=== PATIENT | female | born 1990 | race Caucasian/White ===

== ENCOUNTER 2019-05-10 03:33 | Inpatient (IN) | payer BC ==
[2019-05-10] MEDS ORDERED: Tranexamic Acid 1,000 MG in Sodium Chloride 0.9% 100 ML IV PRN (16:57)
[2019-05-10] MEDS ORDERED: Methylergonovine 0.2 MG/1 ML Amp IM PRN (16:57)
[2019-05-10] MEDS ORDERED: Sodium Chloride 0.9% 10 ML SDV IV PRN (16:57)
[2019-05-10] MEDS ORDERED: Misoprostol 200 MCG Tab PO PRN (16:57)
[2019-05-10] MEDS ORDERED: Sodium Chloride 0.9% 2.5 ML Syringe FLUSH PRN (16:57)
[2019-05-10] MEDS ORDERED: Carboprost Tromethamine 250 MCG/1 ML Amp IM PRN (16:57)
[2019-05-10] MEDS ORDERED: Sodium Chloride 0.9% 10 ML Syringe FLUSH PRN (16:57)
[2019-05-10] MEDS ORDERED: Butorphanol 1 MG/ML SDV IVPUSH PRN (16:57)
[2019-05-10] MEDS ORDERED: Nalbuphine 10 MG/1 ML Vial IVPUSH PRN (16:57)
[2019-05-10] MEDS ORDERED: Terbutaline 1 MG/ML SDV SUBCUT PRN (16:57)
[2019-05-10] MEDS ORDERED: Misoprostol 25 MCG (1/4 of 100 MCG) Tab VAG PRN ×2 (16:57)
[2019-05-10] MEDS ORDERED: Lidocaine 1% 50 ML MDV INJECT PRN (16:57)
[2019-05-10] MEDS ORDERED: Water For Irrigation,Sterile 1,000 ML Container IRR PRN (16:57)
[2019-05-10] MEDS ORDERED: Oxytocin/0.9 % Sodium Chloride 30 UNIT/500 ML BAG IV SCH ×2 (17:00)
[2019-05-10] MEDS: Lactated Ringers 1,000 ML IV SCH (17:27)
[2019-05-11] MEDS ORDERED: Bupivicaine/fentaNYL/NS 250 ML ONE (00:42)
[2019-05-11] MEDS: Lactated Ringers 1,000 ML IV SCH (01:15)
--- NOTE | 2019-05-11 01:27 | PCM.PREANE ---
Preanesthetic Assessment - Anesthesia/Transfusion/Family Hx Anesthesia History: Prior Anesthesia Without Reaction Family History of Anesthesia Reaction: No Transfusion History: No Prior Transfusion(s) - Review of Systems General: No Symptoms Pulmonary: No Symptoms Cardiovascular: No Symptoms Gastrointestinal: No Symptoms Neurological: No Symptoms Other: Reports: None - Physical Assessment NPO Status Date: 05/11/19 NPO Status Time: 19:00 Vital Signs: 148/68 82 18 98% Height: 5 ft 6 in Weight: 81.647 kg ASA Class: 2 Mental Status: Alert & Oriented x3 Dentition: Reports: Normal Dentition Thyro-Mental Finger Breadths: 3 Mouth Opening Finger Breadths: 3 ROM/Head Extension: Full Lungs: Clear to Auscultation, Normal Respiratory Effort Cardiovascular: Regular Rate, Regular Rhythm - Lab Values: Laboratory Last Values WBC 15.51 K/uL (4.0-11.0) H 05/10/19 16:10 RBC 4.30 M/uL (4.30-5.90) 05/10/19 16:10 Hgb 14.1 g/dL (12.0-16.0) 05/10/19 16:10 Hct 40.3 % (36.0-46.0) 05/10/19 16:10 MCV 93.7 fL (80.0-98.0) 05/10/19 16:10 MCH 32.8 pg (27.0-32.0) H 05/10/19 16:10 MCHC 35.0 g/dL (31.0-37.0) 05/10/19 16:10 RDW Std Deviation 45.6 fl (28.0-62.0) 05/10/19 16:10 RDW Coeff of Mari 13 % (11.0-15.0) 05/10/19 16:10 Plt Count 303 K/uL (150-400) 05/10/19 16:10 MPV 9.10 fL (7.40-12.00) 05/10/19 16:10 Nucleated RBC % 0.0 /100WBC 05/10/19 16:10 Nucleated RBCs # 0 K/uL 05/10/19 16:10 Blood Type A POSITIVE 05/10/19 16:10 Antibody Screen NEGATIVE 05/10/19 16:10 - Allergies Allergies/Adverse Reactions: Allergies Allergy/AdvReac Type Severity Reaction Status Date / Time No Known Allergies Allergy Verified 05/10/19 16:56 - Blood Blood Available: No - Anesthesia Plan Pre-Op Medication Ordered: None - Acknowledgements Anesthesia Type Planned: Epidural Pt an Appropriate Candidate for the Planned Anesthesia: Yes Alternatives and Risks of Anesthesia Discussed w Pt/Guardian: Yes Pt/Guardian Understands and Agrees with Anesthesia Plan: Yes Additional Comments: Pt verbalized understanding and wants to proceed. PreAnesthesia Questionnaire Cardiovascular History: Reports: None Respiratory History: Reports: None Gastrointestinal History: Reports: None Genitourinary History: Reports: None AUDIOPROSTHOLOGIST History: Reports: None Musculoskeletal History: Reports: Back Pain, Chronic Neurological History: Reports: Migraines, Other (See Below) Other Neuro History: vestibular migrains Psychiatric History: Reports: None Endocrine/Metabolic History: Reports: None Hematologic History: Reports: None Immunologic History: Reports: None Oncologic (Cancer) History: Reports: None Dermatologic History: Reports: None - Infectious Disease History Infectious Disease History: Reports: None - Past Surgical History Head Surgeries/Procedures: Reports: None HEENT Surgical History: Reports: LASIK, Naso-Sinus Surgery GI Surgical History: Reports: None Female Surgical History: Reports: None Endocrine Surgical History: Reports: None Neurological Surgical History: Reports: Spinal Fusion Musculoskeletal Surgical History: Reports: Other (See Below) Other Musculoskeletal Surgeries/Procedures:: back surgery L5-S1 fusion Oncologic Surgical History: Reports: None Dermatological Surgical History: Reports: None - SUBSTANCE USE Smoking Status *Q: Never Smoker Tobacco Use Within Last Twelve Months: No Second Hand Smoke Exposure: No Recreational Drug Use History: No - HOME MEDS Home Medications: Home Meds Pnv No.95/Ferrous Fum/Folic AC [ Tablet] 1 tab PO DAILY 12/18/17 [ History] - CURRENT (IN HOUSE) MEDS Current Meds: Current Medications Butorphanol Tartrate (Stadol) 1 mg IVPUSH Q1H PRN PRN Reason: Pain Carboprost Tromethamine (Hemabate Ds) 250 mcg IM ASDIRECTED PRN PRN Reason: Post Hemorrhage Lactated Ringer's (Ringers, Lactated) 1,000 mls @ 150 mls/hr IV ASDIRECTED CHRIS Last Admin: 05/11/19 01:15 Dose: 150 mls/hr Oxytocin/Sodium Chloride (Oxytocin 30 Unit/500 Ml-Ns) 30 unit in 500 mls @ 500 mls/hr IV TITRATE CHRIS Oxytocin/Sodium Chloride (Oxytocin 30 Unit/500 Ml-Ns) 30 unit in 500 mls @ 2 mls/hr IV TITRATE CHRIS; Protocol Last Admin: 05/11/19 01:16 Dose: 2 munits/min, 2 mls/hr Tranexamic Acid 1,000 mg/ (Sodium Chloride) 110 mls @ 660 mls/hr IV ONETIME PRN PRN Reason: Bleeding Lidocaine HCl (Xylocaine 1%) 50 ml INJECT ONETIME PRN PRN Reason: Laceration repair Methylergonovine Maleate (Methergine) 0.2 mg IM ASDIRECTED PRN PRN Reason: Post Hemorrhage Misoprostol (Cytotec) 200 mcg PO ONETIME PRN PRN Reason: Post Hemorrhage Misoprostol (Cytotec) 25 mcg VAG ONETIME PRN PRN Reason: Cervical Ripening Last Admin: 05/10/19 17:45 Dose: 25 mcg Misoprostol (Cytotec) 25 mcg VAG Q4H PRN PRN Reason: Cervical Ripening Nalbuphine HCl (Nubain) 10 mg IVPUSH Q1H PRN PRN Reason: Pain (severe 7-10) Sodium Chloride (Saline Flush) 10 ml FLUSH ASDIRECTED PRN PRN Reason: Keep Vein Open Sodium Chloride (Saline Flush) 2.5 ml FLUSH ASDIRECTED PRN PRN Reason: Keep Vein Open Sodium Chloride (Normal Saline) 10 ml IV ASDIRECTED PRN PRN Reason: IV Use Sterile Water (Sterile Water For Irrigation) 1,000 ml IRR ASDIRECTED PRN PRN Reason: delivery Terbutaline Sulfate (Brethine) 0.25 mg SUBCUT ASDIRECTED PRN PRN Reason: Tacysystole Discontinued Medications Fentanyl/Bupivacaine HCl (Fentanyl/Bupivacaine/Ns 2 Mcg-0.125% 250 Ml) Confirm Administered Dose 250 mls @ as directed .ROUTE .[facility] ONE Stop: 05/11/19 00:43
--- NOTE | 2019-05-11 04:01 | PCM.DEL ---
L & D Note - General Info Date of Service: 05/11/19 Mother's Due Date: 05/14/19 - Delivery Note Labor: Induced by ARM, Induced by Oxytocin Cervical Ripening Method: Misoprostil Delivery Outcome: Livebirth Delivery Method: Spontaneous Vaginal Delivery-Single Presentation: Right Occiput Anterior (FREDERICK) Nuchal Cord: None Prep: Other Anesthesia Type: Epidural Anesthetic: Lidocaine (Xylocaine) 1% Plain Local Anesthetic Volume: 5cc Amniotic Fluid Description: Clear Episiotomy Type: Left Mediolateral Laceration: None Suture type: Vicryl Suture size: 3-0 Placenta: Intact, Spontaneous Cord: 3 Vessels Estimated Blood Loss: 200 Resuscitation Needed: No [place]: Suctioned Score 1 min: 8 Score 5 min: 9 Delivery Comments (Free Text/Narrative):: Liveborn female - General Info Date of Service: 05/11/19 - Patient Data Weight - Most Recent: 81.647 kg Lab Results Last 24 Hours: Laboratory Results - last 24 hr 05/10/19 05/10/19 Range/Units 16:10 16:10 WBC 15.51 H (4.0-11.0) K/uL RBC 4.30 (4.30-5.90) M/uL Hgb 14.1 (12.0-16.0) g/dL Hct 40.3 (36.0-46.0) % MCV 93.7 (80.0-98.0) fL MCH 32.8 H (27.0-32.0) pg MCHC 35.0 (31.0-37.0) g/dL RDW Std Deviation 45.6 (28.0-62.0) fl RDW Coeff of Mari 13 (11.0-15.0) % Plt Count 303 (150-400) K/uL MPV 9.10 (7.40-12.00) fL Nucleated RBC % 0.0 /100WBC Nucleated RBCs # 0 K/uL Blood Type A POSITIVE Antibody Screen NEGATIVE Med Orders - Current: Current Medications Butorphanol Tartrate (Stadol) 1 mg IVPUSH Q1H PRN PRN Reason: Pain Carboprost Tromethamine (Hemabate Ds) 250 mcg IM ASDIRECTED PRN PRN Reason: Post Hemorrhage Lactated Ringer's (Ringers, Lactated) 1,000 mls @ 150 mls/hr IV ASDIRECTED CHRIS Last Admin: 05/11/19 01:15 Dose: 150 mls/hr Oxytocin/Sodium Chloride (Oxytocin 30 Unit/500 Ml-Ns) 30 unit in 500 mls @ 500 mls/hr IV TITRATE CHRIS Oxytocin/Sodium Chloride (Oxytocin 30 Unit/500 Ml-Ns) 30 unit in 500 mls @ 2 mls/hr IV TITRATE CHRIS; Protocol Last Titration: 05/11/19 03:33 Dose: 500 munits/min, 500 mls/hr Tranexamic Acid 1,000 mg/ (Sodium Chloride) 110 mls @ 660 mls/hr IV ONETIME PRN PRN Reason: Bleeding Lidocaine HCl (Xylocaine 1%) 50 ml INJECT ONETIME PRN PRN Reason: Laceration repair Last Admin: 05/11/19 03:48 Dose: 50 ml Methylergonovine Maleate (Methergine) 0.2 mg IM ASDIRECTED PRN PRN Reason: Post Hemorrhage Misoprostol (Cytotec) 200 mcg PO ONETIME PRN PRN Reason: Post Hemorrhage Misoprostol (Cytotec) 25 mcg VAG ONETIME PRN PRN Reason: Cervical Ripening Last Admin: 05/10/19 17:45 Dose: 25 mcg Misoprostol (Cytotec) 25 mcg VAG Q4H PRN PRN Reason: Cervical Ripening Nalbuphine HCl (Nubain) 10 mg IVPUSH Q1H PRN PRN Reason: Pain (severe 7-10) Sodium Chloride (Saline Flush) 10 ml FLUSH ASDIRECTED PRN PRN Reason: Keep Vein Open Sodium Chloride (Saline Flush) 2.5 ml FLUSH ASDIRECTED PRN PRN Reason: Keep Vein Open Sodium Chloride (Normal Saline) 10 ml IV ASDIRECTED PRN PRN Reason: IV Use Sterile Water (Sterile Water For Irrigation) 1,000 ml IRR ASDIRECTED PRN PRN Reason: delivery Last Admin: 05/11/19 03:48 Dose: 1,000 ml Terbutaline Sulfate (Brethine) 0.25 mg SUBCUT ASDIRECTED PRN PRN Reason: Tacysystole Discontinued Medications Fentanyl/Bupivacaine HCl (Fentanyl/Bupivacaine/Ns 2 Mcg-0.125% 250 Ml) Confirm Administered Dose 250 mls @ as directed .ROUTE .[facility] Stop: 05/11/19 00:43 - Problem List & Annotations (1) Vaginal delivery SNOMED Code(s): 979907084 Code(s): O80 - ENCOUNTER FOR FULL-TERM UNCOMPLICATED DELIVERY Status: Acute Current Visit: Yes - Problem List Review Problem List Initiated/Reviewed/Updated: Yes - My Orders Last 24 Hours: My Active Orders 05/10/19 15:30 Patient Status [ADT] Routine 05/10/19 16:10 RPR (SYPHILIS SERO) W/ RFLX [REF] Routine 05/10/19 16:57 Bedrest Bathroom Privileges [RC] ASDIRECTED Communication Order [RC] ASDIRECTED Communication Order [RC] ASDIRECTED Communication Order [RC] ASDIRECTED Heart Tones [RC] CONTINUOUS Non Stress Test [RC] PER UNIT ROUTINE May Shower [RC] ASDIRECTED Notify Provider [RC] PRN Notify Provider [RC] PRN Notify Provider [RC] PRN Notify Provider [RC] STAT Oxygen Therapy [RC] ASDIRECTED Up ad Kandi [RC] ASDIRECTED Vaginal Exam [RC] PRN Vaginal Exam [RC] PRN Vital Signs [RC] PER UNIT ROUTINE Vital Signs [RC] PER UNIT ROUTINE Butorphanol [Stadol] 1 mg IVPUSH Q1H PRN Carboprost Tromethamine [Hemabate DS] 250 mcg IM ASDIRECTED PRN Lidocaine 1% [Xylocaine 1%] 50 ml INJECT ONETIME PRN Methylergonovine [Methergine] 0.2 mg IM ASDIRECTED PRN Nalbuphine [Nubain] 10 mg IVPUSH Q1H PRN Sodium Chloride 0.9% [Normal Saline] 10 ml IV ASDIRECTED PRN Sodium Chloride 0.9% [Saline Flush] 10 ml FLUSH ASDIRECTED PRN Sodium Chloride 0.9% [Saline Flush] 2.5 ml FLUSH ASDIRECTED PRN Terbutaline [Brethine] 0.25 mg SUBCUT ASDIRECTED PRN Tranexamic Acid [Cyklokapron] 1,000 mg Sodium Chloride 0.9% [Normal Saline] 100 ml IV ONETIME Water For Irrigation,Sterile [Sterile Water for Irrigation] 1,000 ml IRR ASDIRECTED PRN miSOPROStoL [Cytotec] 200 mcg PO ONETIME PRN miSOPROStoL [Cytotec] 25 mcg VAG ONETIME PRN miSOPROStoL [Cytotec] 25 mcg VAG Q4H PRN Scalp Electrode [WOMSER] Per Unit Routine Peripheral IV Insertion Adult [OM.PC] Routine Resuscitation Status Routine 05/10/19 17:00 Lactated Ringers [Ringers, Lactated] 1,000 ml IV ASDIRECTED Oxytocin/0.9 % Sodium Chloride [Oxytocin 30 Unit/500 ML-NS] 30 unit in 500 ml IV TITRATE Oxytocin/0.9 % Sodium Chloride [Oxytocin 30 Unit/500 ML-NS] 30 unit in 500 ml IV TITRATE Medication Administration Instruction [OM.PC] Q3H 05/11/19 Dinner Clear Liquid Diet [DIET]
[2019-05-11] MEDS ORDERED: Bisacodyl 10 MG Supp RECTAL PRN (04:03)
[2019-05-11] MEDS ORDERED: Ibuprofen 400 MG Tab PO PRN (04:03)
[2019-05-11] MEDS ORDERED: Tranexamic Acid 1,000 MG in Sodium Chloride 0.9% 100 ML IV PRN (04:03)
[2019-05-11] MEDS ORDERED: Acetaminophen 500 MG Tab PO PRN (04:03)
[2019-05-11] MEDS ORDERED: Witch Hazel Medicated Pads 40/Jar TOP PRN (04:03)
[2019-05-11] MEDS ORDERED: Lanolin 100% Cream 7 GM Tube TOP PRN (04:03)
[2019-05-11] MEDS ORDERED: Benzocaine/Menthol 20%-0.5% Spray 78 GM Cannister TOP PRN (04:03)
--- NOTE | 2019-05-11 04:48 | OR ---
SURGEON: Lacey Forbes M.D. DATE OF PROCEDURE: 05/11/2019 PREOPERATIVE DIAGNOSES: 1. A 39 and 4/7 weeks' intrauterine . 2. Mild chronic hypertension. POSTOPERATIVE DIAGNOSES: 1. A 39 and 4/7 weeks' intrauterine . 2. Mild chronic hypertension. PROCEDURE: Cytotec and Pitocin induction of labor, artificial rupture of membranes, term spontaneous vaginal delivery, left mediolateral episiotomy with repair. COMPLICATIONS: None known. DISPOSITION: Mother and baby in LDR in good condition. COMPLICATIONS: None known. BRIEF HISTORY: This is a 28-year-old female, G1, P0. She presents at 39-3/7 weeks' gestation for induction of labor. Her baseline blood pressures in the 1st trimester were in the 80s and now again in the 3rd trimester in the 80s. No evidence of preeclampsia. However, she is greater than 39 weeks and I did offer induction of labor with Cytotec understanding that it is off-label use, and she did agree. She was admitted to Labor and Delivery. She received a single dose of Cytotec. Following this, she was 2 cm, 80%. Artificial rupture of membranes was performed. Clear fluid noted. She was started on Pitocin. She received an epidural for pain control. She had normal heart tones throughout labor. Blood pressures were high normal in the 120s to 150s over 70s to 80s, and she progressed to complete. DESCRIPTION OF PROCEDURE: With the patient in dorsal lithotomy position, the patient pushed over 1-hour time period. I felt that the perineum would tear badly as it was not stretching and after discussion with the patient, I did offer mediolateral episiotomy and she did request to proceed with it. I placed an additional 10 mL of 1% lidocaine at the 5 o'clock position on the perineum and a small incision was made with scissors. Three additional pushes were required after the episiotomy with delivery of the 's head. The was bulb suctioned on the perineum with subsequent delivery of the 's shoulders and body without any difficulty. The was further bulb suctioned by nose and mouth and the was handed to the mother in the presence of the nurse attending delivery. The was a liveborn female, score of 8 and 9. Weight is pending at the time of dictation. After the cord had ceased to pulsate, it was doubly clamped and cut. Cord blood was collected for cord ABGs as well as routine cord blood sampling. Pitocin had been initiated after delivery of the infant to assist with delivery of the placenta which was delivered spontaneously. Schultze intact with 3 vessels. Upon inspection of the pelvis and perineum, there were no periurethral, vaginal sidewall, cervical, rectal, or perineal lacerations. There was a small mediolateral laceration on the left. She had a small tag that had been removed at the time of incision. The vaginal mucosa was closed with a running locked suture of 3-0 Vicryl. The deep perineal tissue was reapproximated with a running suture of the 3-0 Vicryl and a subcuticular suture of the same for the skin. Final sponge, needle, and instrument counts were correct. There were no known complications. Mother and baby remained in LDR in good condition. ANETA / RADHA /[id number]
[2019-05-11] MEDS: Ibuprofen 800 MG Tab PO PRN ×2 (07:14→18:45)
[2019-05-11] MEDS ORDERED: Prenatal Multivitamin and Multimineral with Iron Tab PO SCH (09:00)
[2019-05-11] MEDS: Acetaminophen 500 MG Tab PO PRN ×2 (12:26→22:39)
[2019-05-11] MEDS: Docusate Sodium 100 MG Cap PO PRN (22:38)
[2019-05-12 07:53] VITALS: BP 134/86; PULSE 89
[2019-05-12] MEDS: Ibuprofen 800 MG Tab PO PRN (07:58)
--- NOTE | 2019-05-12 08:29 | PCM.PNPP ---
- General Info Date of Service: 05/12/19 Functional Status: Reports: Pain Controlled, Tolerating Diet, Ambulating, Urinating, Other (breast feeding is going well. ) - Review of Systems General: Reports: No Symptoms HEENT: Reports: No Symptoms Pulmonary: Reports: No Symptoms Cardiovascular: Reports: No Symptoms Gastrointestinal: Reports: No Symptoms Genitourinary: Reports: No Symptoms Musculoskeletal: Reports: No Symptoms Skin: Reports: No Symptoms Neurological: Reports: No Symptoms Psychiatric: Reports: No Symptoms - Patient Data Vital Signs - Most Recent: Last Vital Signs Temp 36.5 C 05/12/19 07:52 Pulse 89 05/12/19 07:52 Resp 18 05/12/19 07:52 BP 134/86 05/12/19 07:52 Pulse Ox 98 05/12/19 07:52 Weight - Most Recent: 81.647 kg Lab Results - Last 24 Hours: Laboratory Results - last 24 hr 05/12/19 Range/Units 06:01 Hgb 12.4 (12.0-16.0) g/dL Hct 36.7 (36.0-46.0) % Med Orders - Current: Current Medications Acetaminophen (Tylenol Extra Strength) 500 mg PO Q4H PRN PRN Reason: Pain Acetaminophen (Tylenol Extra Strength) 1,000 mg PO Q4H PRN PRN Reason: Pain Last Admin: 05/11/19 22:39 Dose: 1,000 mg Benzocaine/Menthol (Dermoplast Pain Relief 20%-0.5% [place]) 78 gm TOP ASDIRECTED PRN PRN Reason: Perineal Comfort Measure Last Admin: 05/11/19 07:15 Dose: 1 can Bisacodyl (Dulcolax) 10 mg RECTAL ONETIME PRN PRN Reason: Constipation Docusate Sodium (Colace) 100 mg PO BID PRN PRN Reason: Constipation Last Admin: 05/11/19 22:38 Dose: 100 mg Emollient Ointment (Lansinoh Hpa) 0 gm TOP ASDIRECTED PRN PRN Reason: Sore Nipples Last Admin: 05/11/19 07:15 Dose: 7 gram Tranexamic Acid 1,000 mg/ (Sodium Chloride) 110 mls @ 660 mls/hr IV ONETIME PRN PRN Reason: Bleeding Ibuprofen (Motrin) 400 mg PO Q4H PRN PRN Reason: Pain Ibuprofen (Motrin) 800 mg PO Q6H PRN PRN Reason: Pain Last Admin: 05/12/19 07:58 Dose: 800 mg Prenat Multivit/[place]/Iron/Folic Ac ( Mtr) 1 each PO DAILY CHRIS Last Admin: 05/11/19 07:14 Dose: 1 each Witch Padmaja (Tucks) 1 pad TOP ASDIRECTED PRN PRN Reason: comfort care Last Admin: 05/11/19 07:15 Dose: 1 tub Discontinued Medications Butorphanol Tartrate (Stadol) 1 mg IVPUSH Q1H PRN PRN Reason: Pain Carboprost Tromethamine (Hemabate Ds) 250 mcg IM ASDIRECTED PRN PRN Reason: Post Hemorrhage Lactated Ringer's (Ringers, Lactated) 1,000 mls @ 150 mls/hr IV ASDIRECTED CHRIS Last Admin: 05/11/19 01:15 Dose: 150 mls/hr Oxytocin/Sodium Chloride (Oxytocin 30 Unit/500 Ml-Ns) 30 unit in 500 mls @ 500 mls/hr IV TITRATE CHRIS Oxytocin/Sodium Chloride (Oxytocin 30 Unit/500 Ml-Ns) 30 unit in 500 mls @ 2 mls/hr IV TITRATE CHRIS; Protocol Last Titration: 05/11/19 03:33 Dose: 500 munits/min, 500 mls/hr Tranexamic Acid 1,000 mg/ (Sodium Chloride) 110 mls @ 660 mls/hr IV ONETIME PRN PRN Reason: Bleeding Fentanyl/Bupivacaine HCl (Fentanyl/Bupivacaine/Ns 2 Mcg-0.125% 250 Ml) Confirm Administered Dose 250 mls @ as directed .ROUTE .[facility]MED ONE Stop: 05/11/19 00:43 Lidocaine HCl (Xylocaine 1%) 50 ml INJECT ONETIME PRN PRN Reason: Laceration repair Last Admin: 05/11/19 03:48 Dose: 50 ml Methylergonovine Maleate (Methergine) 0.2 mg IM ASDIRECTED PRN PRN Reason: Post Hemorrhage Misoprostol (Cytotec) 200 mcg PO ONETIME PRN PRN Reason: Post Hemorrhage Misoprostol (Cytotec) 25 mcg VAG ONETIME PRN PRN Reason: Cervical Ripening Last Admin: 05/10/19 17:45 Dose: 25 mcg Misoprostol (Cytotec) 25 mcg VAG Q4H PRN PRN Reason: Cervical Ripening Nalbuphine HCl (Nubain) 10 mg IVPUSH Q1H PRN PRN Reason: Pain (severe 7-10) Sodium Chloride (Saline Flush) 10 ml FLUSH ASDIRECTED PRN PRN Reason: Keep Vein Open Sodium Chloride (Saline Flush) 2.5 ml FLUSH ASDIRECTED PRN PRN Reason: Keep Vein Open Sodium Chloride (Normal Saline) 10 ml IV ASDIRECTED PRN PRN Reason: IV Use Sterile Water (Sterile Water For Irrigation) 1,000 ml IRR ASDIRECTED PRN PRN Reason: delivery Last Admin: 05/11/19 03:48 Dose: 1,000 ml Terbutaline Sulfate (Brethine) 0.25 mg SUBCUT ASDIRECTED PRN PRN Reason: Tacysystole - Interaction Disposition, : in Room with Family Interaction: Holding Feeding: Breastfed ; Nursed Well Support Person: - Recovery Exam Fundal Tone: Firm Fundal Level: 1 Fingerbreadths Below Umbilicus Fundal Placement: Midline Lochia Amount: Small Lochia Color: Alba/White Perineum Description: Ecchymotic, Edematous Episiotomy/Laceration: Approximated Bladder Status: Nonpalpable - Exam General: Alert, Oriented Lungs: Normal Respiratory Effort GI/Abdominal Exam: Soft, Non-Tender, No Distention Extremities: Non-Tender, No Pedal Edema Skin: Warm, Dry, Intact Neurological: No New Focal Deficit Psy/Mental Status: Alert, Normal Affect, Normal Mood - Problem List & Annotations (1) Vaginal delivery SNOMED Code(s): 077895002 Code(s): O80 - ENCOUNTER FOR FULL-TERM UNCOMPLICATED DELIVERY Status: Acute Current Visit: Yes - Problem List Review Problem List Initiated/Reviewed/Updated: Yes - My Orders Last 24 Hours: My Active Orders 05/11/19 09:00 Vit/FA/Fe Fumarate/Se [ MTR] 1 each PO DAILY - Assessment Assessment:: PPD#1 after , stable, minimal lochia, well. Would like to go home today - Plan Plan:: Dismiss to home, discharge instructions reviewed.
[2019-05-12] MEDS: Docusate Sodium 100 MG Cap PO PRN (14:11)
--- NOTE | 2019-05-12 19:15 | PCM48HPAN ---
Post Anesthesia Note - EVALUATION WITHIN 48HRS OF ANESTHETIC Vital Signs in Normal Range: Yes Patient Participated in Evaluation: Yes Respiratory Function Stable: Yes Airway Patent: Yes Cardiovascular Function Stable: Yes Hydration Status Stable: Yes Pain Control Satisfactory: Yes Nausea and Vomiting Control Satisfactory: Yes Mental Status Recovered: Yes Vital Signs: Last Vital Signs Temp 36.5 C 05/12/19 07:52 Pulse 89 05/12/19 07:52 Resp 18 05/12/19 07:52 BP 134/86 05/12/19 07:52 Pulse Ox 98 05/12/19 07:52 - COMMENTS/OBSERVATIONS Free Text/Narrative:: No anesthesia problems
== END 2019-05-12 16:35 | disposition home or self-care (01) | DRG 560 ==
LOC: MW.OB 03:33 → OBSVTOIN 05-11 03:33 → MW.OB 05-11 08:57
PROVIDERS: ADMIT Obstetrics & Gynecology; ATTEND Obstetrics & Gynecology
PROC: 10E0XZZ Delivery of Products of Conception, External Approach (ICD-10-PCS; principal; 2019-05-11)
PROC: 10907ZC Drainage of Amniotic Fluid, Therapeutic from Products of Conception, Via Natural or Artificial Opening (ICD-10-PCS; 2019-05-11)
PROC: 3E033VJ Introduction of Other Hormone into Peripheral Vein, Percutaneous Approach (ICD-10-PCS; 2019-05-11)
PROC: 0W8NXZZ Division of Female Perineum, External Approach (ICD-10-PCS; 2019-05-11)
PROC: 3E0R3BZ Introduction of Anesthetic Agent into Spinal Canal, Percutaneous Approach (ICD-10-PCS; 2019-05-11)
DX: O16.4 Unspecified maternal hypertension, complicating childbirth (principal); Z3A.39 39 weeks gestation of pregnancy; Z37.0 Single live birth
CPT/HCPCS: 36415; 51702; 59025; 59409; 82803; 85014; 85018; 85027; 86592; 86593; 86850; 86900; 86901; A9270-GY; J2001; J2590; J7120

== ENCOUNTER 2022-12-14 08:50 | Day surgery (SDC) | payer BC ==
[~2022-12-14 08:50] MED LIST: Albuterol 0.083% 2.5 MG/3 ML Neb Soln NEB PRN; HYDROmorphone 1 MG/ML Syringe IVPUSH PRN; Lactated Ringers 1,000 ML IV SCH; Metoclopramide 10 MG/2 ML SDV IVPUSH PRN; Morphine 2 MG/ML SYRINGE IVPUSH PRN; Naloxone 0.4 MG/ML SDV IVPUSH PRN; Ondansetron 4 MG/2 ML SDV IVPUSH PRN; Scopolamine 1.5 MG Transdermal Patch TOP ONE; droPERidol 5 MG/2 ML SDV IVPUSH PRN; fentaNYL 50 MCG/ML SDV IVPUSH PRN
[2022-12-14] MEDS ORDERED: Lidocaine 2% 11 ML Jelly Filled Syringe ONE (09:27)
[2022-12-14] MEDS ORDERED: Propofol 200 MG/20 ML SDV ONE (09:27)
[2022-12-14] MEDS ORDERED: Lidocaine 2% 5 ML SDV ONE (09:27)
[2022-12-14] MEDS ORDERED: fentaNYL 100 MCG/2 ML SDV ONE (09:27)
[2022-12-14] MEDS ORDERED: Ondansetron 4 MG/2 ML SDV ONE (09:27)
[2022-12-14] MEDS ORDERED: Ketorolac 30 MG/ML SDV ONE (09:27)
[2022-12-14] MEDS ORDERED: Dexamethasone 4 MG/ML 5 ML MDV ONE (09:27)
[2022-12-14] MEDS ORDERED: Ketamine 500 mg/10 ML MDV ONE (10:24)
[2022-12-14 12:32] VITALS: BP 120/81; PULSE 78
== END 2022-12-14 12:00 | disposition home or self-care (01) ==
LOC: MW.SDS 08:50
PROVIDERS: ATTEND Obstetrics & Gynecology
DX: D28.0 Benign neoplasm of vulva (principal); L57.0 Actinic keratosis; Z79.899 Other long term (current) drug therapy
CPT/HCPCS: 11200; 46220; 58563; A9270; J1100; J1885; J2405; J2704; J3010; J3490; J7120; 00944

== ENCOUNTER 2024-05-17 05:21 | Emergency (ER) | payer BC ==
[2024-05-17] MEDS: Naproxen 500 MG Tab PO ONE (05:55)
[2024-05-17] MEDS: predniSONE 20 MG Tab PO ONE (05:55)
[2024-05-17 06:02] LABS: BASOPHILS ABSOLUTE AUTO 0.08 K/uL (0.00-0.20); BASOPHILS PERCENT AUTO 0.9 % (0.0-1.0); EOSINOPHILS ABSOLUTE AUTO 0.25 K/uL (0.00-0.45); EOSINOPHILS PERCENT AUTO 2.9 % (0.0-6.0); HEMATOCRIT 35.8 % (37.0-47.0); HEMOGLOBIN 12.7 g/dL (12.0-16.0); IMMATURE GRAN ABSOLUTE AUTO 0.02 K/uL (0.00-0.05); IMMATURE GRAN PERCENT AUTO 0.2 % (0.0-0.4); LYMPHOCYTES PERCENT AUTO 21.8 % (24.0-44.0); MEAN CORPUSCULAR HEMOGLOBIN 31.5 pg (28.0-32.0); MEAN CORPUSCULAR HGB CONC 35.5 g/dL (32.0-36.0); MEAN CORPUSCULAR VOLUME 88.8 fL (83.0-99.0); MEAN PLATELET VOLUME 8.5 fL (9.4-12.3); MONOCYTES ABSOLUTE AUTO 0.52 K/uL (0.00-0.80); NEUTROPHILS ABSOLUTE AUTO 5.95 K/uL (1.80-7.70); NEUTROPHILS PERCENT AUTO 68.2 % (41.0-71.0); PLATELET COUNT,PLT 362 K/uL (150-400); RED BLOOD CELL COUNT 4.03 M/uL (4.10-5.30); WHITE BLOOD CELL COUNT,WBC 8.72 K/uL (3.9-11.3)
[2024-05-17 06:31] LABS: BLOOD UREA NITROGEN,BUN 13 mg/dL (7.0-18.0); CALCIUM 8.4 mg/dL (8.5-10.1); CARBON DIOXIDE,CO2 25.7 mmol/L (21.0-32.0); CHLORIDE,CL 105 mmol/L (98-107); CREATININE 0.9 mg/dL (0.6-1.0); EST CRCL DRUG DOSING (CG) 81.67 mL/min; GLUCOSE RANDOM 103 mg/dL (74-106); MAGNESIUM 1.8 mg/dL (1.8-2.4); POTASSIUM,K 4.1 mmol/L (3.5-5.1); SODIUM,NA 140 mmol/L (136-145)
[2024-05-17 06:33] LABS: ESTIMATED GFR 86 mL/min (>60)
[2024-05-17 06:51] VITALS: BP 119/80; PULSE 90
== END 2024-05-17 06:49 | disposition home or self-care (01) ==
LOC: MW.ED 05:21
DX: M25.542 Pain in joints of left hand (principal); M25.541 Pain in joints of right hand; M25.532 Pain in left wrist; M25.531 Pain in right wrist; M25.512 Pain in left shoulder; Z79.1 Long term (current) use of non-steroidal anti-inflammatories (NSAID); Z79.899 Other long term (current) drug therapy; Z79.51 Long term (current) use of inhaled steroids
CPT/HCPCS: 36415; 71046; 80048; 83735; 84484; 84702; 85025; 93005; 99284; A9270; 93010